=== PATIENT | female | born 1955 | race Caucasian/White ===

== ENCOUNTER 2018-05-16 12:17 | Observation (INO) | payer BC ==
[2018-05-16 12:50] LABS: ABS Basophils 0.1 10^3/ul (0-0.2); ABS Eosinophils 0.2 10^3/ul (0-0.6); ABS Lymphocytes 2.1 10^3/ul (1.0-4.8); ABS Monocytes 0.7 10^3/ul (0-0.8); ABS Neutrophils 4.3 10^3/ul (1.5-7.7); ABS Nucleated RBC 0 10^3/ul; Eosinophil % 2.9 %; Hematocrit 36 % (35-47); Lymphocyte % 28.7 %; Mean Corpuscular HGB Conc 34 g/dl (31-36); Mean Corpuscular Hemoglobin 30 pg (27-31); Mean Corpuscular Volume 89 fL (80-97); Mean Platelet Volume 7.9 fL (7.4-10.4); Nucleated Red Blood Cells % 0; Platelet Count 267 10^3/ul (150-450); Red Blood Count 3.98 10^6/ul (4.00-5.40); Red Cell Distribution Width 14 % (10.5-15); White Blood Count 7.4 10^3/ul (3.5-10.8)
[2018-05-16] MEDS ORDERED: Nitroglycerin TAB 0.4 MG* 0.4 MG TAB SL ONE (12:53)
--- NOTE | 2018-05-16 12:54 | ED ---
HPI Chest Pain - HPI Summary HPI Summary: A 62 y/o female presents to [facility] with a chief complaint of chest pain. She reports that she has had back pain since the night of 05/10/18 which has moved to her left shoulder and her chest since the night of 05/15/18. She rates her pain as a 5/10 in severity and describes her pain as tightness. She denies any fever, chills, erythema (eyes), sore throat, shortness of breath, cough, abdominal pain, vomiting, nausea, dysuria, hematuria, myalgia, edema, rash and dizziness. She reports chronic neck pain and says that she has had complete arm tightness at times. She claims that she has been eating and drinking well. She reports that low blood pressure is normal for her. She denies a Hx of cardiac disease, but has a FHx of cardiac disease from her father and younger brothers. Vital signs while in room HR: 74 bpm, O2 Sat: 99, BP: 112/67. - History of Current Complaint Chief Complaint: EDChestPainROMI Time Seen by Provider: 05/16/18 12:34 Hx Obtained From: Patient Onset/Duration: Started Hours Ago, Still Present Timing: Constant, Lasting Hours Pain Intensity: 5 Pain Scale Used: 0-10 Numeric Chest Pain Location: Diffuse Chest Pain Radiates: No Character: Tightness Aggravating Factor(s): Nothing Alleviating Factor(s): Nothing Associated Signs and Symptoms: Negative: Dizziness, Shortness of Breath, Fever, Chills, Nausea, Cough, Abdominal Pain - Allergy/Home Medications Allergies/Adverse Reactions: Allergies Allergy/AdvReac Type Severity Reaction Status Date / Time Penicillins Allergy Rash Verified 05/16/18 12:25 Home Medications: Home Medications NK [No Home Medications Reported] 05/16/18 [History Confirmed 05/16/18] PMH/Surg Hx/FS Hx/Imm Hx Cardiovascular History: Denies: Hx Cardiac Arrest, Hx Myocardial Infarction Sensory History: Denies: Hx Deafness - Surgical History Surgery Procedure, Year, and Place: none reported Infectious Disease History: No Infectious Disease History: Denies: Traveled Outside the [place] in Last 30 Days - Family History Known Family History: Positive: Cardiac Disease - father, younger brothers - Social History Alcohol Use: None Substance Use Type: Reports: None Smoking Status (MU): Never Smoked Tobacco Review of Systems Negative: Fever, Chills Negative: Erythema Negative: Sore Throat Positive: Chest Pain Negative: Shortness Of Breath, Cough Negative: Abdominal Pain, Vomiting, Nausea Negative: dysuria, hematuria Positive: Arthralgia - left shoulder pain, Myalgia - back pain. Negative: Edema Negative: Rash Neurological: Negative - dizziness All Other Systems Reviewed And Are Negative: Yes Physical Exam - Summary Physical Exam Summary: Constitutional: Well-developed, Well-nourished, Alert. (-) Distressed Skin: Warm, Dry HENT: Normocephalic; Atraumatic Eyes: Conjunctiva normal Neck: Musculoskeletal ROM normal neck. (-) JVD, (-) Stridor, (-) Tracheal deviation Cardio: Rhythm regular, rate normal, Heart sounds normal; Intact distal pulses; The pedal pulses are 2+ and symmetric. Radial pulses are 2+ and symmetric. (-) Murmur Pulmonary/Chest wall: Effort normal. (-) Respiratory distress, (-) Wheezes, (-) Rales Abd: Soft, (-) tenderness, (-) Distension, (-) Guarding, (-) Rebound Musculoskeletal: (-) Edema Lymph: (-) Cervical adenopathy Neuro: Alert, Oriented x3 Psych: Mood and affect Normal Triage Information Reviewed: Yes Vital Signs On Initial Exam: Initial Vitals Temp Pulse Resp BP Pulse Ox 98 F 81 16 132/65 99 05/16/18 12:19 05/16/18 12:19 05/16/18 12:19 05/16/18 12:19 05/16/18 12:19 Vital Signs Reviewed: Yes Diagnostics - Vital Signs Vital Signs Temp Pulse Resp BP Pulse Ox 05/16/18 12:52 99 05/16/18 12:38 69 16 112/67 99 05/16/18 12:36 14 05/16/18 12:19 98 F 81 16 132/65 99 - Laboratory Lab Results: Lab Results 05/16/18 Range/Units 12:41 WBC 7.4 (3.5-10.8) 10^3/ul RBC 3.98 L (4.00-5.40) 10^6/ul Hgb 12.0 (12.0-16.0) g/dl Hct 36 (35-47) % MCV 89 (80-97) fL MCH 30 (27-31) pg MCHC 34 (31-36) g/dl RDW 14 (10.5-15) % Plt Count 267 (150-450) 10^3/ul MPV 7.9 (7.4-10.4) fL Neut % (Auto) 58.3 % Lymph % (Auto) 28.7 % [place] % (Auto) 9.1 % Eos % (Auto) 2.9 % Baso % (Auto) 1.0 % Absolute Neuts (auto) 4.3 (1.5-7.7) 10^3/ul Absolute Lymphs (auto) 2.1 (1.0-4.8) 10^3/ul Absolute Monos (auto) 0.7 (0-0.8) 10^3/ul Absolute Eos (auto) 0.2 (0-0.6) 10^3/ul Absolute Basos (auto) 0.1 (0-0.2) 10^3/ul Absolute Nucleated RBC 0 10^3/ul Nucleated RBC % 0 Result Diagrams: 05/16/18 12:41 05/16/18 12:41 Lab Statement: Any lab studies that have been ordered have been reviewed, and results considered in the medical decision making process. - Radiology CXR Radiology Interpretation Completed By: Radiologist Summary of Radiographic Findings: NO ACTIVE CARDIOPULMONARY DISEASE IS NOTED. ED physician has reviewed this imaging report. - EKG 12:29 Cardiac Rate: NL - 69 bpm EKG Rhythm: Sinus Rhythm Summary of EKG Findings: EKG at 12:29 showed normal sinus rhythm at 69 bpm, no STEMI. Chest Pain Course/Dx - Course Course Of Treatment: A 62 y/o female presents to [facility] with a chief complaint of chest pain. She reports that she has had back pain since the night of which has moved to her left shoulder and her chest since the night of . She rates her pain as a 5/10 in severity and describes her pain as tightness. She denies any fever, chills, erythema (eyes), sore throat, shortness of breath, cough, abdominal pain, vomiting, nausea, dysuria, hematuria , myalgia, edema, rash and dizziness. She reports chronic neck pain and says that she has had complete arm tightness at times. She claims that she has been eating and drinking well. She reports that low blood pressure is normal for her. She denies a Hx of cardiac disease, but has a FHx of cardiac disease from her father and younger brothers. The physical exam was unremarkable. Differential diagnosis:musculoskeletal, biliary colic, angina, acute ID. In the ED course the patient was given 0.2 mg Nitroglycerin SL at 12:53. EKG at 12:29 showed normal sinus rhythm at 69 bpm, no STEMI. CXR impression: NO ACTIVE CARDIOPULMONARY DISEASE IS NOTED. Bloodwork and chemistries obtained and are WNL. Case discussed with Dr. Mares, hospitalist, who accepted the patient for admission. - Chest Pain Differential Diagnosis/HQI/PQRI: Acute ID, Angina, Other: - musculoskeletal, biliary colic - Diagnoses Provider Diagnoses: Chest pain, unspecified - Provider Notifications Discussed Care Of Patient With: Robert Mares Time Discussed With Above Provider: 13:47 Instructed by Provider To: Admit As Inpatient Discharge - Sign-Out/Discharge Documenting (check all that apply): Patient Departure - admit Patient Received Moderate/Deep Sedation with Procedure: No - Discharge Plan Condition: Fair Disposition: ADMITTED TO [facility] - Billing Disposition and Condition Condition: FAIR Disposition: Admitted to [facility] - Attestation Statements Document Initiated by Socoibe: Yes Documenting Scribe: Bebo Sanchez Provider For Whom Esteban is Documenting (Include Credential): Wally Mendoza MD Scribe Attestation: Bebo Carter, scribed for Wally Mendoza MD on 05/16/18 at 2230. Scribe Documentation Reviewed: Yes Provider Attestation: The documentation as recorded by the Bebo palencia accurately reflects the service I personally performed and the decisions made by , Wally Mendoza MD Status of Scribe Document: Viewed
[2018-05-16 13:18] LABS: Albumin 4.1 g/dL (3.2-5.2); Albumin/Globulin Ratio 1.7 (1-3); Calcium 8.9 mg/dL (8.6-10.3); EGFR African American 92.7 (>60); EGFR Non-African American 76.6 (>60); Globulin 2.4 g/dL (2-4); Potassium 4.1 mmol/L (3.5-5.0); Total Bilirubin 0.4 mg/dL (0.2-1.0); Total Protein 6.5 g/dL (6.4-8.9)
[2018-05-16] MEDS ORDERED: Nitro 2% OINT* (Nitroglycerin) 1 INCH/PAK PAK TOPICAL ONE (13:25)
[2018-05-16] MEDS ORDERED: Nitroglycerin TAB 0.4 MG* 0.4 MG TAB SL PRN (16:04)
[2018-05-16] MEDS ORDERED: Acetaminophen TAB* 325 MG PO PRN (16:04)
[2018-05-16] MEDS ORDERED: Ondansetron INJ* 2 MG/ML VIAL IV PRN (16:04)
[2018-05-16] MEDS ORDERED: Nitro Patch/OINT Remove TOPICAL SCH (17:00)
--- NOTE | 2018-05-16 19:21 | HP ---
CC: Dr. Juni Munoz * ADMISSION HISTORY AND PHYSICAL: DATE OF ADMISSION: 05/16/18 PRIMARY CARE PROVIDER: Dr. Juni Munoz. MY ATTENDING WHILE IN THE HOSPITAL: Dr. Mares.* (DICTATED BY BETHANY BRAR) CHIEF COMPLAINT: Chest pain x12 hours. HISTORY OF PRESENT ILLNESS: Ms. Mora is a 62-year-old female with a past medical history significant only for borderline hyperlipidemia and low vitamin D , who presents to the emergency department after having approximately a week of low and upper back pain that is not uncommon for her. The patient states, however, that she developed approximately 12 hours ago band of aching soreness over her upper abdomen with associated queasiness. The patient had been taking aspirin 1 to 3 tabs for her back pain. The patient also had some aching in her left shoulder and some numbness and tingling in her right arm. This is not new for the patient as well and has previously been associated with her neck pain and are usually resolved with chiropractic adjustment. The patient states that the pain did not get worse with activity. The patient denies fevers, chills, nausea, vomiting, lower extremity swelling, orthopnea, dyspnea on exertion. The patient in the emergency department was given nitroglycerin and this helped to relieve the pain in her abdomen. The patient had a pain on her rib cage in the same general area that she had not noticed before. The patient had no recent changes in her diet, no recent changes in medications, no fatty meals, she is a vegetarian, no recent exposure to flu, and no recent upper respiratory infections. The patient at the time of evaluation is chest pain free and otherwise has no complaints. Due to concern for chest pain, we were asked to evaluate the patient for admission to the hospital. PAST MEDICAL HISTORY: 1. Borderline hyperlipidemia. 2. Low vitamin D. PAST SURGICAL HISTORY: Breast reduction in year 1999. MEDICATIONS: Vitamin D 50,000 units over the week. ALLERGIES: PENICILLIN. FAMILY HISTORY: The patient's father at 70 with [facility]. The patient's mother is alive, 90 and has early dementia. The patient has 7 brothers and sisters, the patient has 2 younger brothers both of whom have had MIs, but they both have high blood pressure and smoke. SOCIAL HISTORY: The patient has never smoked. Drinks occasional alcohol. Never uses illicit drugs. 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 The patient is and has no children. REVIEW OF SYSTEMS: A 14-point review of systems was reviewed with the patient, is negative except as above in the HPI. PHYSICAL EXAMINATION GENERAL: The patient is a 62-year-old female, who appears younger than stated age, sitting comfortably in bed, in no acute distress. VITAL SIGNS: Temperature 98, pulse rate 60, respiratory rate 20, oxygen saturation 98% on room air, blood pressure 112/58. HEENT: Head: Normocephalic, atraumatic. Sclerae anicteric. No conjunctival injection. Nasal mucosa moist. Oral mucosa moist. No pharyngeal erythema, discharge, or exudate. NECK: Supple, nontender. No lymphadenopathy. No carotid bruit auscultated. No JVD. RESPIRATORY: Clear to auscultation bilaterally. No wheezes, rales, or rhonchi. Good air exchange bilaterally. CARDIAC: Regular rate and rhythm. No clicks, murmurs, gallops, or rubs. Pulses 2+ in the bilateral dorsalis pedis, posterior tibialis, and radial areas. ABDOMEN: Soft, nontender, nondistended. Bowel sounds present. Normoactive in all 4 quadrants. No hepatosplenomegaly. No abdominal bruits auscultated. No hepatojugular reflux. GENITOURINARY: No suprapubic or CVA tenderness. NEURO: Cranial nerves II through XII intact. No focal deficits. Alert and oriented x3. PSYCHIATRIC: Pleasant and cooperative. SKIN: Clean, dry, intact. No rash. LABORATORY DATA: White blood cell count 7.4, hemoglobin 12.0, platelet count 264. Sodium 137, potassium 4.1, chloride 106, carbon dioxide 26, anion gap 5, BUN 19, creatinine 0.76, glucose 96. Lactic acid 0.7. Calcium 8.9. Bilirubin 0.4, AST 21, ALT 16, alkaline phosphatase 55. Troponin I 0.0 x2. Protein 6.5, albumin 4.1, globulin 2.4. DIAGNOSTIC STUDIES: Chest x-ray reveals no active cardiopulmonary disease. EKG shows normal sinus rhythm, normal axis, no hypertrophy or enlargement, no ST segment elevation or depression, T wave flattening in aVL, QTc of 435, rate of 69. ASSESSMENT AND PLAN/IMPRESSION: Ms. Mora is a 62-year-old female with a past medical history significant only for borderline hyperlipidemia but with a strong positive family history for heart disease who presents to the emergency department with 12 hours of upper abdominal/chest pain with radiation to the left shoulder and the right arm. The patient will be admitted to the hospital to rule out myocardial infarction. 1. Chest pain. The patient's chest pain has atypical features, but other features are concerning for cardiac origin, radiation to the right arm and the left shoulder as well as associated nausea may be signs of this being cardiac in origin. The patient has a strong family history including her father who of an [facility] when he was only 70, which is not much older than her age. The patient has borderline hyperlipidemia, but no other cardiac risk factors. The patient has been taking aspirin for her back pain thereby giving her MILO score of 1. The patient had 2 negative troponins at this point. The patient has nonischemic EKG. Given the patient's family history and the above, we will admit the patient to the hospital for 3 troponins, risk factor stratification with a fasting lipid profile and a hemoglobin A1c, repeat EKG in the morning and if all these are negative, the plan will be for an outpatient stress test as stress testing not available until Saturday. The patient had resolution of her symptoms with 0.2 mg sublingual nitroglycerin. The patient has borderline low blood pressure. Her nitro patch will be discontinued and as needed nitroglycerin will be reintroduced. The patient will be started on aspirin 81 mg p.o. daily. We will check a D-dimer with next troponin draw to rule out pulmonary embolus. The patient also has a Wells score of 0. The patient's chest pain is very probably gastrointestinal in nature. 2. Borderline hyperlipidemia. This is per the patient's collection. She will repeat a fasting lipid profile in the morning and treat as indicated. 3. Low vitamin D. Continue the patient's intermittent vitamin D supplementation at home. 4. DVT prophylaxis. The patient is a moderate risk. We will order SCDs when nonambulatory. 5. FEN. The patient will have a heart healthy diet without caffeine. No fluids are indicated at this time. TIME SPENT: Approximately 45 minutes was spent on the admission of this patient , 25 of which was spent [id number] with the patient obtaining history and physical and discussing treatment plan. This plan has been discussed with my attending, Dr. Mares, he is in agreement. BETHANY BRAR [id number]/[facility] #: [id number] MARIANNA
[2018-05-16] MEDS ORDERED: Nitro Patch/OINT Remove PATCH OFF ONE (19:30)
[2018-05-17 08:20] LABS: HDL Cholesterol 80.1 mg/dL
[2018-05-17] MEDS ORDERED: Aspirin EC TAB* 81 MG TAB.EC PO SCH (09:00)
[2018-05-17 12:21] VITALS: BP 104/60
--- NOTE | 2018-05-18 04:26 | DS ---
DISCHARGE SUMMARY: DATE OF ADMISSION: 05/16/18 DATE OF DISCHARGE: 05/17/18 ATTENDING PHYSICIAN WHILE IN THE HOSPITAL: Dr. Kia Liu * (dictated by Malorie Haile, HERIBERTO). PRIMARY CARE PROVIDER: Dr. Juni Munoz. PRIMARY DIAGNOSIS: Atypical chest pain. SECONDARY DIAGNOSES: 1. Borderline hyperlipidemia. 2. Low vitamin D. STUDIES COMPLETED WHILE IN THE HOSPITAL: She had a chest x-ray on 05/16/18. Radiologist's impression: No active cardiopulmonary disease. She had an EKG which showed sinus rhythm at a rate of [address] changes noted. DISCHARGE MEDICATIONS: New home medications: 1. Aspirin 81 mg p.o. daily. Continued home medications: 1. Acetaminophen 650 mg p.o. q.6 hours as needed for pain. HISTORY OF PRESENT ILLNESS: Ms. Mora is a 63-year-old female with a past medical history significant only for borderline hyperlipidemia and low vitamin D , who presented to the emergency room after having approximately a week of low and upper back pain that was uncommon for her. She states that; however, she developed approximately 12 hours of a band aching soreness over her upper abdomen that was associated with queasiness. The patient reports that she has been taking aspirin 1 to 3 tablets for her back pain. She also has some aching in her left shoulder and soreness and some numbness and tingling in her right arm. This was not new for the patient as well as she has previously been associated with her neck pain and usually resolves with chiropractic adjustment. The patient reports that the pain did not get worse with activity. She denied any recent illnesses or sicknesses. While in the emergency room, the patient had routine lab work drawn and was given nitroglycerin, which reports relieved her pain in her abdomen. She had pain in her rib cage at the same general area that she did not notice before. Due to the concerns of chest pain and family history of father at 70 from an [place], we were asked to see and evaluate her for admission. On admission evaluation, the patient was chest pain free. She remained chest pain free throughout her hospitalization. She was monitored on telemetry. She had no episodes of arrhythmias on the monitor. She had a repeat EKG that continued to show sinus rhythm with no ST changes. The patient had 3 negative troponins and has had no further chest pain. She reports she is able to stack board and walk or jog and do strenuous activities as well without the development of chest pain or shortness of breath. At this time, given her negative troponins and negative EKG, she is stable for discharge home. REVIEW OF SYSTEMS: The patient denies any fever, chills, nausea, vomiting, or diarrhea. Denies any chest espinoza or shortness of breath. Denies any abdominal pain. Denies any arm numbness, tingling, chest pressure, or any other symptoms. PHYSICAL EXAMINATION: General: At this time, Ms. Mora is sitting in the bed. She is alert and oriented x3. She is well nourished, well developed. She is in no acute distress. HEENT: Head is atraumatic, normocephalic. Eyes: EOMs are intact. Sclerae anicteric and not pale. Oral mucosa is moist. Neck is supple. Lungs are clear to auscultation bilaterally. No wheezes, rales, or rhonchi. Cardiac: S1 and S2, regular rate and rhythm. Abdomen is soft and nontender. Bowel sounds are present x4. She is able to move all 4 extremities with 5/5 strength. Neurologic: She is awake, alert, and oriented x3. Speech is clear. Thought process is intact. There are no gross focal deficits. Skin is intact. Vital Signs: Blood pressure 104/68, heart rate is 62, respirations are 20, O2 saturation 98% on room air, temperature was 97.3. DISCHARGE PLAN: Ms. Mora will be discharged home. Activity as tolerated. Diet: She should continue on a regular diet. 1. Atypical chest pain. The patient had 3 negative troponins at 0.00 x3. Her EKG did not show any acute changes for ischemia. At this time, she will be discharged home. I would recommend that the patient follow up with her primary care provider for scheduling of an outpatient stress test if deemed necessary. The patient was instructed to return to the emergency room for any development of chest pain radiating to her neck and down her arm or any chest pressure or tightness. The patient verbalized understanding. She should continue on aspirin 81 mg p.o. daily. The patient had a cholesterol profile drawn during this hospitalization. Cholesterol was 209, LDL was 119 which was near optimal, HDL was 80 and triglycerides were 51. The patient declined statin therapy. She would like to continue with diet modifications for treatment of her cholesterol. 2. Borderline hyperlipidemia. Again, the patient declined the statin therapy and would prefer to continue with diet modifications and exercise to improve her cholesterol. FOLLOWUP: She should follow up with her primary care provider in 4 to 7 days. She should return to the emergency room for any chest pain, shortness of breath , or any other concerning symptoms. TIME SPENT: Time spent on this discharge was 60 minutes, greater than half that time was spent at the bedside discussing discharge plans and instructions. CONDITION ON DISCHARGE: Stable. DISPOSITION: Home. I have discussed this with my attending, Dr. Kia Liu; she is in agreement with my plan. MALORIE HAILE NP [id number]/[facility] #: [id number] MARIANNA
== END 2018-05-17 12:40 | disposition home or self-care (01) ==
LOC: ED 12:17 → MEDTELE 16:04
PROVIDERS: ADMIT Student in an Organized Health Care Education/Training Program; ATTEND Internal Medicine
DX: R07.89 Other chest pain (principal); E78.5 Hyperlipidemia, unspecified; E55.9 Vitamin D deficiency, unspecified; Z79.82 Long term (current) use of aspirin; M54.9 Dorsalgia, unspecified; Z88.0 Allergy status to penicillin
CPT/HCPCS: 36415; 71045; 80053; 80061; 83036; 83605; 84484; 85025; 85379; 93005; 96374; 99285; A9270-GY; G0378

== ENCOUNTER 2019-02-03 15:17 | Emergency (ER) | payer BC, MEDICARE ==
[2019-02-03 16:32] LABS: ABS Basophils 0.1 10^3/ul (0-0.2); ABS Lymphocytes 1.9 10^3/ul (1.0-4.8); ABS Monocytes 1.3 10^3/ul (0-0.8); ABS Neutrophils 9.1 10^3/ul (1.5-7.7); Eosinophil % 0.2 %; Hematocrit 34 % (35-47); Hemoglobin 11.6 g/dL (12.0-16.0); Lymphocyte % 15.6 %; Mean Corpuscular HGB Conc 34 g/dL (31-36); Mean Corpuscular Hemoglobin 31 pg (27-31); Mean Corpuscular Volume 90 fL (80-97); Mean Platelet Volume 7.7 fL (7.4-10.4); Platelet Count 224 10^3/uL (150-450); Red Blood Count 3.77 10^6 /uL (3.70-4.87); Red Cell Distribution Width 13 % (10-15); White Blood Count 12.4 10^3/uL (3.5-10.8)
[2019-02-03 16:53] LABS: Albumin 3.9 g/dL (3.2-5.2); Albumin/Globulin Ratio 1.4 (1-3); BUN/Creatinine Ratio 19.1 (8-20); C Reactive Protein 59.03 mg/L (<8.01); Calcium 9.2 mg/dL (8.6-10.3); EGFR African American 105.1 (>60); EGFR Non-African American 86.8 (>60); Globulin 2.7 g/dL (2-4); Total Bilirubin 0.8 mg/dL (0.2-1.0); Total Protein 6.6 g/dL (6.4-8.9)
[2019-02-03] MEDS ORDERED: NS 0.9% 1000 ML** 1,000 ML IV ONE (18:06)
--- NOTE | 2019-02-03 18:40 | ED ---
GI/ HPI - HPI Summary HPI Summary: 63 year old female who presents with 3-4 days of constant lower abdominal pain and nausea. The pain radiates to her lower back at times. Patient states that her last bowel movement was 3 days ago and was of normal consistency. She states that she is passing gas. Reports pain with urination. Denies gross hematuria or increased frequency. Denies fever, chills, vomiting. states she has had a couple small bowel movements. has never had this pain before. No previous abdominal surgeries. Has no medical conditions. She did have a fever at her primary. - History of Current Complaint Chief Complaint: EDAbdPain Time Seen by Provider: 02/03/19 17:49 Stated Complaint: POSS BLOCKAGE INTESTINAL PER PT Pain Intensity: 2 - Additional Pertinent History Primary Care Physician: SHAYY - Allergy/Home Medications Allergies/Adverse Reactions: Allergies Allergy/AdvReac Type Severity Reaction Status Date / Time Penicillins Allergy Rash Verified 05/16/18 12:25 Home Medications: Home Medications Ergocalciferol CAP* [Drisdol CAP*] 1 dose PO WEEKLY 02/03/19 [History Confirmed 02/03/19] PMH/Surg Hx/FS Hx/Imm Hx Endocrine/Hematology History: Reports: Other Endocrine/Hematological Disorders - Vit D Deficiency Cardiovascular History: Denies: Hx Cardiac Arrest, Hx Myocardial Infarction Sensory History: Denies: Hx Contacts or Glasses, Hx Deafness, Hx Hearing Aid Opthamlomology History: Denies: Hx Contacts or Glasses - Surgical History Surgery Procedure, Year, and Place: none reported Infectious Disease History: No Infectious Disease History: Denies: Traveled Outside the [place] in Last 30 Days - Family History Known Family History: Positive: Cardiac Disease - father, younger brothers - Social History Alcohol Use: None Substance Use Type: Reports: None Smoking Status (MU): Never Smoked Tobacco Review of Systems Constitutional: Negative Eyes: Negative ENT: Negative Cardiovascular: Negative Respiratory: Negative Positive: Abdominal Pain, Nausea Positive: dysuria Musculoskeletal: Negative Skin: Negative Neurological: Negative Psychological: Normal All Other Systems Reviewed And Are Negative: Yes Physical Exam Triage Information Reviewed: Yes Vital Signs On Initial Exam: Initial Vitals Temp Pulse Resp BP Pulse Ox 99.5 F 86 18 111/63 98 02/03/19 15:24 02/03/19 15:24 02/03/19 15:24 02/03/19 15:24 02/03/19 15:24 Vital Signs Reviewed: Yes Appearance: Positive: Well-Appearing, No Pain Distress, Well-Nourished Skin: Positive: Warm, Skin Color Reflects Adequate Perfusion, Dry Head/Face: Positive: Normal Head/Face Inspection Eyes: Positive: Normal, EOMI, GOOD ENT: Positive: Normal ENT inspection Neck: Positive: Supple, Nontender, No Lymphadenopathy Respiratory/Lung Sounds: Positive: Clear to Auscultation, Breath Sounds Present Cardiovascular: Positive: Normal, RRR, S1, S2 Abdomen Description: Positive: Soft, CVA Tenderness (L), Other: - Suprapubic tenderness Bowel Sounds: Positive: Present Musculoskeletal: Positive: Normal Neurological: Positive: Normal Psychiatric: Positive: Normal, Affect/Mood Appropriate Procedures - Sedation Patient Received Moderate/Deep Sedation with Procedure: No Diagnostics - Vital Signs Vital Signs Temp Pulse Resp BP Pulse Ox 02/03/19 17:34 98.7 F 73 18 109/52 98 02/03/19 15:24 99.5 F 86 18 111/63 98 - Laboratory Lab Results: Lab Results 02/03/19 02/03/19 02/03/19 Range/Units 16:26 16:26 16:26 WBC 12.4 H (3.5-10.8) 10^3/uL RBC 3.77 (3.70-4.87) 10^6 /uL Hgb 11.6 L (12.0-16.0) g/dL Hct 34 L (35-47) % MCV 90 (80-97) fL MCH 31 (27-31) pg MCHC 34 (31-36) g/dL RDW 13 (10-15) % Plt Count 224 (150-450) 10^3/uL MPV 7.7 (7.4-10.4) fL Neut % (Auto) 73.4 % Lymph % (Auto) 15.6 % Anson % (Auto) 10.1 % Eos % (Auto) 0.2 % Baso % (Auto) 0.7 % Absolute Neuts (auto) 9.1 H (1.5-7.7) 10^3/ul Absolute Lymphs (auto) 1.9 (1.0-4.8) 10^3/ul Absolute Monos (auto) 1.3 H (0-0.8) 10^3/ul Absolute Eos (auto) 0.0 (0-0.6) 10^3/ul Absolute Basos (auto) 0.1 (0-0.2) 10^3/ul Absolute Nucleated RBC 0.0 10^3/ul Nucleated RBC % 0.0 Sodium 137 (135-145) mmol/L Potassium 4.0 (3.5-5.0) mmol/L Chloride 104 (101-111) mmol/L Carbon Dioxide 26 (22-32) mmol/L Anion Gap 7 (2-11) mmol/L BUN 13 (6-24) mg/dL Creatinine 0.68 (0.51-0.95) mg/dL Est GFR ( Amer) 105.1 (>60) Est GFR (Non-Af Amer) 86.8 (>60) BUN/Creatinine Ratio 19.1 (8-20) Glucose 102 H (70-100) mg/dL Lactic Acid 0.6 (0.5-2.0) mmol/L Calcium 9.2 (8.6-10.3) mg/dL Total Bilirubin 0.80 (0.2-1.0) mg/dL AST 17 (13-39) U/L ALT 12 (7-52) U/L Alkaline Phosphatase 61 (34-104) U/L C-Reactive Protein 59.03 H (<8.01) mg/L Total Protein 6.6 (6.4-8.9) g/dL Albumin 3.9 (3.2-5.2) g/dL Globulin 2.7 (2-4) g/dL Albumin/Globulin Ratio 1.4 (1-3) Lipase 21 (11.0-82.0) U/L Result Diagrams: 02/03/19 16:26 02/03/19 16:26 Lab Statement: Any lab studies that have been ordered have been reviewed, and results considered in the medical decision making process. - CT abd CT Interpretation Completed By: Radiologist Summary of CT Findings: IMPRESSION: 1. 10 mm noncalcified nodule in the right costophrenic sulcus. For both low risk and high risk patients, consider CT at 3 months, PET/CT or biopsy. (Shahriar et al., Fleischner Society, 2017). 2. Minimal sigmoid diverticulosis. There is some mid sigmoid wall thickening without definite pericolonic induration. Minimal diverticulitis is not excluded. 3. Slight proximal rectal wall thickening with perirectal induration, particularly on the right suggesting distal colitis or proctitis. Re-Evaluation - Re-Evaluation First Eval Re-Evaluation Time: 20:22 Comment: Patient resting comfortably on the stretcher. Pain has resolved. GIGU Course/Dx - Course Course Of Treatment: 63 year old female presenting with abdominal pain and nausea for 3-4 days. No fever, chills, vomiting. Abdomen is soft and non- distended, with positive bowel sounds in all four quadrants. Suprapubic tenderness. wnc 12.[address] shows potential colitis and diverticulitis. Urinalysis shows potential uti. will treat with cipro and flagyl. told to follow up with primary about nodule. patient understand and agrees with plan. - Diagnoses Differential Diagnoses - Female: Bowel Obstruction, Constipation, Urinary Tract Infection Provider Diagnoses: Colitis Discharge ED - Sign-Out/Discharge Documenting (check all that apply): Patient Departure - Discharge Plan Condition: Good Disposition: HOME Prescriptions: Ciprofloxacin TAB* [Cipro 500 MG TAB*] 500 mg PO BID #13 tab metroNIDAZOLE [Flagyl 500 MG TAB] 500 mg PO BID #13 tab Patient Education Materials: Colitis (ED) Referrals: Juni Munoz MD [Primary Care Provider] - Additional Instructions: Take cipro twice a day for 7 days, first dose given in ED Take Flagyl twice a day for 7 days, first dose given in ED follow up with primary Return to ED if develop any new or worsening symptoms - Billing Disposition and Condition Condition: GOOD Disposition: Home - Attestation Statements Provider Attestation: I was available for consult. This patient was seen by the [facility]. The patient was not presented to, seen by, or examined by me. Kaleb Mendez MD
[2019-02-03] MEDS ORDERED: Iohexol 300* (CONTRAST) 10 ML SDV IV ONE (19:33)
[2019-02-03 19:45] LABS: Urine Appearance Clear; Urine Bilirubin Negative (Negative); Urine Blood 1+ (Negative); Urine Color Straw; Urine Glucose Negative (Negative); Urine Ketones Trace (Negative); Urine Nitrite Negative (Negative); Urine Protein Negative (Negative); Urine Specific Gravity 1.004 (1.010-1.030); Urine Urobilinogen Negative (Negative)
[2019-02-03 19:48] LABS: Urine Bacteria Absent (Absent); Urine Red Blood Cell Trace(0-2/hpf) (Absent); Urine Squamous Epithelial Cell Present (Absent); Urine White Blood Cell Trace(0-5/hpf) (Absent)
[2019-02-03] MEDS ORDERED: Ciprofloxacin TAB* 500 MG PO ONE (21:57)
[2019-02-03] MEDS ORDERED: metroNIDAZOLE TAB* 250 MG PO ONE (21:58)
[2019-02-03 22:23] VITALS: BP 120/65
== END 2019-02-03 22:05 | disposition home or self-care (01) ==
LOC: ED 15:17
DX: K52.9 Noninfective gastroenteritis and colitis, unspecified (principal); E59 Dietary selenium deficiency; Z79.899 Other long term (current) drug therapy; Z88.0 Allergy status to penicillin
CPT/HCPCS: 36415; 74177; 80053; 81003; 81015; 83605; 83690; 85025; 86140; 87086; 99284; A9270-GY; Q9967